=== PATIENT | male | born 1935 | race Caucasian/White ===

== ENCOUNTER 2019-03-08 01:57 | Inpatient (IN) | payer OTHER ==
[~2019-03-08] VITALS: Ht 172.7 cm; Wt 65.7 kg
[2019-03-08] MEDS ORDERED: LISI20 PO (02:39)
[2019-03-08] MEDS ORDERED: Aspir 8181 MG PO (02:39)
[2019-03-08] MEDS ORDERED: AMLODIPINE PO (02:40)
[2019-03-08 03:08] LABS: BASOPHILS ABSOLUTE AUTO 0.02 K/mm3 (0.00-0.23); BASOPHILS PERCENT AUTO 0 % (0-2); EOSINOPHILS PERCENT AUTO 0 % (0-6); Hemoglobin 6.4 g/dL (13.5-17.5); IMMATURE GRAN ABSOLUTE AUTO 0.22 K/mm3 (0.00-0.10); IMMATURE GRAN PERCENT AUTO 1 % (0-1); LYMPHOCYTES ABSOLUTE AUTO 0.48 K/mm3 (0.84-5.20); LYMPHOCYTES PERCENT AUTO 3 % (21-46); MONOCYTES ABSOLUTE AUTO 1.06 K/mm3 (0.16-1.47); MONOCYTES PERCENT AUTO 5 % (4-13); Mean Corpuscular HGB 27.2 pg (26.0-34.0); Mean Corpuscular Volume 85 fL (80-100); Mean Platelet Volume 9.5 fL (9.1-12.4); NEUTROPHILS ABSOLUTE AUTO 17.81 K/mm3 (1.96-9.15); NEUTROPHILS PERCENT AUTO 91 % (41-73); Platelet Count 194 K/mm3 (150-400); RDW Coefficient Variation 14.6 % (11.7-14.2); RDW Standard Deviation 44.9 fL (35.1-46.3); Red Blood Cell Count 2.35 M/mm3 (4.30-5.90); White Blood Cell Count 19.59 K/mm3 (4.00-11.30)
[2019-03-08 03:23] LABS: International Normalized Ratio 2.03; Prothrombin Time Results 20.2 Sec (9.7-11.5)
[2019-03-08 03:28] LABS: Alanine Aminotransfer (ALT/SGP 28 U/L (12-78); Albumin, Blood 1.8 g/dL (3.4-5.0); Albumin/Globulin Ratio 0.5 (0.8-1.8); Alk Phos 119 U/L (50-136); Anion Gap 8 mmol/L (6-16); Aspartate Aminotrans (AST/SGOT 32 U/L (12-37); Blood Urea Nitrogen 14 mg/dL (8-24); Bun/Creatinine Ratio 27.5 (12.0-20.0); CO2, Blood 29 mmol/L (21-32); CPK Creatine Kinase 102 U/L (39-308); Calcium, Blood 8.5 mg/dL (8.5-10.1); Chloride, Blood 96 mmol/L (98-108); Creatinine, Blood 0.51 mg/dL (0.60-1.20); Globulin, Blood 3.8 g/dL (2.2-4.0); Glomerular Filtration Rate >60 (60-); Glucose, Blood 108 mg/dL (70-99); Potassium, Blood 2.9 mmol/L (3.5-5.5); Sodium, Blood 133 mmol/L (136-145); Total Protein, Blood 5.6 g/dL (6.4-8.2); Troponin I 0.108 ng/mL (0.000-0.040)
[2019-03-08 05:51] LABS: Percent Saturation 9.3 % (20.0-50.0)
--- NOTE | 2019-03-08 07:13 | NUR ---
END OF SHIFT SUMMARY ASSUMED CARE OF PT @0640 FROM ED. PT HAS PRBCS INFUSING AND NS. VSS. TELEMETERY ATTTACHED.VITALS OBTAINED, PRBC INFUSION RATE INCREASED 125MLS/HR. BLOOD CONSENT FORM PRESENT AND SIGNED IN ED. PT CHANGED INTO GOWN. PT ALERT AND TALKING WITH STAFF APPROPRIATELY. REPORT GIVEN TO ONCOMING RN.
[2019-03-08 08:54] LABS: Source, Urine Clean Catch
[2019-03-08 09:09] LABS: Bilirubin, Urine Neg (Neg); Blood, Urine 1+ (Neg); Glucose Qualitative, Urine Neg (Neg); Ketones, Urine 2+ (Neg); Leukocyte Esterase, Urine 2+ (Neg); Nitrite, Urine Neg (Neg); Protein, Urine 2+ (Neg); Urobilinogen, Urine 2+ (Normal)
[2019-03-08 09:11] LABS: Appearance, Urine Hazy (Clear); Color, Urine Yellow (P-Yellow)
[2019-03-08 09:14] LABS: Red Blood Cells, Urine 0-2 /hpf (0-2); Squamous Epithelial Cells Rare /hpf (Few)
[2019-03-08 09:15] LABS: Bacteria Many /hpf
[2019-03-08 10:11] LABS: Adenovirus Not Detected (NOT DETECT); Coronavirus 229E Not Detected (NOT DETECT)
[2019-03-08 10:12] LABS: Bordetella pertussis Not Detected (NOT DETECT); Chlamydophila pneumoniae Not Detected (NOT DETECT); Coronavirus HKU1 Not Detected (NOT DETECT); Coronavirus NL63 Not Detected (NOT DETECT); Coronavirus OC43 Not Detected (NOT DETECT); Human Metapneumovirus Not Detected (NOT DETECT); Human Rhinovirus/Enterovirus Not Detected (NOT DETECT); Influenza A Not Detected (NOT DETECT); Influenza A/2009-H1 Not Detected (NOT DETECT); Influenza A/H1 Not Detected (NOT DETECT); Influenza A/H3 Not Detected (NOT DETECT); Influenza B Not Detected (NOT DETECT); Mycoplasma pneumoniae Not Detected (NOT DETECT); Parainfluenza Virus 1 Not Detected (NOT DETECT); Parainfluenza Virus 2 Not Detected (NOT DETECT); Parainfluenza Virus 3 Not Detected (NOT DETECT); Parainfluenza Virus 4 Not Detected (NOT DETECT); Respiratory Syncytial Virus Not Detected (NOT DETECT)
[2019-03-08] MEDS ORDERED: FISH OIL 1,001000 MG PO (10:53)
[2019-03-08] MEDS ORDERED: Hair, Skin & N1 EACH PO (10:53)
[2019-03-08] MEDS ORDERED: VITAMIN D-32000 UNIT PO (10:55)
[2019-03-08 12:06] LABS: Troponin I 0.143 ng/mL (0.000-0.040)
--- NOTE | 2019-03-08 12:28 | NUR ---
MARCELO TURNER OF [facility], NO NEW ORDERS. WILL CONTINUE TO MONITOR.
--- NOTE | 2019-03-08 12:53 | NUR ---
Echocardiogram completed.
[2019-03-08 16:52] LABS: International Normalized Ratio 1.94; Prothrombin Time Results 19.4 Sec (9.7-11.5)
--- NOTE | 2019-03-08 17:46 | NUR ---
SHIFT SUMMARY PT A&Ox2, CALM AND COOPERATIVE [facility] CARE. PT RESTING IN BED DURING SHIFT, UP QITH 1 PERSON ASSIST WITH FWW. PT DENIES PAIN AND NAUSEA. PT REPORTS POOR APPETEITE. PT LS DIMINISHED T/O SHIFT, PT STARTED ON 4L O2 VIA NC, INCREASED TO 5L AFTER ACTIVITY. UA AND RESPIRATORY PANEL COLLECTED AND SENT. PT ATTEMPTED TO GIVE SPUTUM SPECIMEN, LAB CALLED AND SPECIMEN WAS NOT SUFFICENT. PT RECEIVED 2UNITS PRBC, IV ALBUMIN, K RIDER x2 AND IV ANTIBITOICS. PTPE STUDY AND ABD CT COMPLETED THIS AM, PT STARTED ON LOVENOX BID, AND PLANS FOR LUNG BIOPSY IN AM, HELD 03/08/19 0500 DOSE OF LOVENOX, PER DR ARIAS ORDERS. ECHO COMPLETED. PROVIDER CONSULT FOR ONCOLOGY CALLED INTO ANSWERING SERVICE. VSS. NO OTHER ACUTE CHANGES NOTED DURING SHIFT. WILL CONTINUE TO MONITOR. UNTIL REPORT GIVEN TO ONCOMING RN.
[2019-03-08 19:51] LABS: Troponin I 0.12 ng/mL (0.000-0.040)
[2019-03-09 04:04] LABS: Hemoglobin 8.1 g/dL (13.5-17.5); Mean Corpuscular HGB 27.3 pg (26.0-34.0); Mean Corpuscular HGB Conc 32.4 g/dL (31.5-36.5); Mean Corpuscular Volume 84 fL (80-100); Platelet Count 229 K/mm3 (150-400); RDW Coefficient Variation 14.7 % (11.7-14.2); RDW Standard Deviation 45.1 fL (35.1-46.3); Red Blood Cell Count 2.97 M/mm3 (4.30-5.90); White Blood Cell Count 22.58 K/mm3 (4.00-11.30)
[2019-03-09 04:33] LABS: Alanine Aminotransfer (ALT/SGP 24 U/L (12-78); Albumin, Blood 1.8 g/dL (3.4-5.0); Albumin/Globulin Ratio 0.5 (0.8-1.8); Alk Phos 107 U/L (50-136); Anion Gap 8 mmol/L (6-16); Aspartate Aminotrans (AST/SGOT 30 U/L (12-37); Bilirubin, Total 0.9 mg/dL (0.1-1.0); Blood Urea Nitrogen 12 mg/dL (8-24); CO2, Blood 26 mmol/L (21-32); Calcium, Blood 8.2 mg/dL (8.5-10.1); Chloride, Blood 103 mmol/L (98-108); Creatinine, Blood 0.46 mg/dL (0.60-1.20); Globulin, Blood 3.4 g/dL (2.2-4.0); Glomerular Filtration Rate >60 (60-); Glucose, Blood 91 mg/dL (70-99); Potassium, Blood 3.3 mmol/L (3.5-5.5); Sodium, Blood 137 mmol/L (136-145); Total Protein, Blood 5.2 g/dL (6.4-8.2)
--- NOTE | 2019-03-09 05:09 | NUR ---
END OF SHIFT SUMMARY PT AXO. HAS BEEN TITRATED FROM 5LNC TO 10L HIFLOW HUMIDIFIED NC. PT HAS BEEN MAINTAINING AT 91% SINCE TITRATED TO THIS AMOUNT. PT HAS BEEN RESTING IN BED FOR MAJORITY OF SHIFT. OCCASIOANLLY, PT DESATS WHILE SLEEPING INTO LOW 80%, WITH WAKING AND BREATHING THOUGH NOSE, INCREASES BACK TO 91%. PT HAS BEEN VERY COOPERATIVE WITH CARE TODAY. WILL BE MAKING A CALL TO DOCTOR REGARDING SPO3. WILL CONTINUE TO MONITOR UNTIL SHIFT CHANGE.
--- NOTE | 2019-03-09 05:38 | NUR ---
PROVIDER DR TROTTER NOTIFIED REGARDING K 3.3, AND THE FACT THAT THEB PT HAS BEEN TITRATED FROM 4LNC TO 10L HIFLOW SINCE ADMISSION YESTERDAY. ORDERS FOR 40MEQ KCL, AND REPEAT CXR DUE TO PT HAVING PREV BILAT PLEURAL EFFUSIONS.
[2019-03-09 10:05] LABS: International Normalized Ratio 1.81; Prothrombin Time Results 18.2 Sec (9.7-11.5)
--- NOTE | 2019-03-09 12:53 | NUR ---
[facility] Care Case conference - Spoke with who reports pt has declined visits from Palliative Care Staff and Care Management. [facility] Care team informed.
--- NOTE | 2019-03-09 13:17 | NUR ---
DR. SEBASTIAN HERE TO SEE PT. FAMILY AT BEDSIDE.
--- NOTE | 2019-03-09 17:15 | NUR ---
SHIFT SUMMARY PT RESTING IN BED THROUGHOUT THE DAY. VSS. ALERT AND ORIENTED X3, DENIES PAIN THROUGHOUT THE DAY. UP TO CHAIR FOR BREAKFAST THIS AM. VOIDING PER URINAL. LUNG SOUNDS DIMINISHED THROUGHOUT, SINUS TACHYCARDIA RATE 104 ON TELEMETRY. 2+ PITTING EDEMA NOTED TO BILATERAL ANKLES.
[2019-03-10 04:26] LABS: BASOPHILS ABSOLUTE AUTO 0.02 K/mm3 (0.00-0.23); BASOPHILS PERCENT AUTO 0 % (0-2); EOSINOPHILS PERCENT AUTO 0 % (0-6); Hematocrit 26.6 % (37.0-53.0); Hemoglobin 8.6 g/dL (13.5-17.5); IMMATURE GRAN ABSOLUTE AUTO 0.37 K/mm3 (0.00-0.10); IMMATURE GRAN PERCENT AUTO 2 % (0-1); LYMPHOCYTES ABSOLUTE AUTO 1.01 K/mm3 (0.84-5.20); LYMPHOCYTES PERCENT AUTO 4 % (21-46); MONOCYTES ABSOLUTE AUTO 1.21 K/mm3 (0.16-1.47); MONOCYTES PERCENT AUTO 5 % (4-13); Mean Corpuscular HGB 26.6 pg (26.0-34.0); Mean Corpuscular HGB Conc 32.3 g/dL (31.5-36.5); Mean Corpuscular Volume 82 fL (80-100); Mean Platelet Volume 9.4 fL (9.1-12.4); NEUTROPHILS ABSOLUTE AUTO 21.14 K/mm3 (1.96-9.15); NEUTROPHILS PERCENT AUTO 89 % (41-73); Platelet Count 208 K/mm3 (150-400); RDW Standard Deviation 43.8 fL (35.1-46.3); Red Blood Cell Count 3.23 M/mm3 (4.30-5.90); White Blood Cell Count 23.75 K/mm3 (4.00-11.30)
[2019-03-10 04:38] LABS: International Normalized Ratio 1.88; Prothrombin Time Results 18.8 Sec (9.7-11.5)
[2019-03-10 04:46] LABS: Anion Gap 6 mmol/L (6-16); Blood Urea Nitrogen 13 mg/dL (8-24); Bun/Creatinine Ratio 31.2 (12.0-20.0); CO2, Blood 28 mmol/L (21-32); Calcium, Blood 8.9 mg/dL (8.5-10.1); Chloride, Blood 104 mmol/L (98-108); Creatinine, Blood 0.42 mg/dL (0.60-1.20); Glomerular Filtration Rate >60 (60-); Glucose, Blood 107 mg/dL (70-99); Potassium, Blood 3.7 mmol/L (3.5-5.5); Sodium, Blood 138 mmol/L (136-145)
[2019-03-10 07:16] LABS: International Normalized Ratio 1.87; Prothrombin Time Results 18.7 Sec (9.7-11.5)
--- NOTE | 2019-03-10 08:13 | NUR ---
END OF SHIFT SUMMARY NO QACUTE CHANGES THIS SHIFT. VSS. PT HAD LARGE INCONTINENT VOID THIS SHIFT, PT DID NOT ALERT STAFF OF THIS UNTIL ASKED. CONTINENCE CHECKS IN PLACE NOW A RESULT OF THIS. PT AND INR CONTINUE TO BE HIGH, PT GIVEN V8 JUICES. PT HAS BEEN UP AND OUT OF BED. REDNESS NOTED IN SACRAL AREA. PT BEING TURNED. PT DOES USE CALL LIGHT AT TIMES BUT IS NOT ALWAYS APT TO EXPRESS NEEDS UNLESS HE IS ASKED SPECIFICALLY. BED ALARM IN PLACE. REPORT GIVEN TO ONCOMING RN.
--- NOTE | 2019-03-10 19:35 | NUR ---
SHIFT SUMMARY PT RESTING IN BED THROUGHOUT THE DAY, UP TO RECLINER THIS AFTERNOON / EVENING FOR A SNACK. 1 PERSON ASSIST TO RECLINER. ALERT AND ORIENTED X3. DENIES PAIN THROUGHOUT THE DAY. LUNG SOUNDS CLEAR, DIMINISHED BASES. ON HIGH FLOW NC, OXYGEN AT 10L THE MAJORITY OF THE DAY, INCREASED TO 13L AFTER LUNG BIOPSY, PT DESATURATED WITH ACTIVITY. DECREASED OXYGEN BACK TO 10L, SATURATIONS >90% THIS EVENING, 95-96% WHEN SLEEPING. BANDAID TO LEFT BACK CDI. NSR RATE 90s-100s PER TELEMETRY. 2+ PITTING EDEMA TO BILATERAL ANKLES. REPORT TO PATTERN TECHNICIAN RN.
--- NOTE | 2019-03-11 06:28 | NUR ---
SUMMARY: ADMIT DAY 4 ANEMIA AND PNEUMONIA AFTER GLF ON HOSPITALIST, DR. TAM AND DR. SEBASTIAN SERVICE. POD 1 LUNG BIOPSY AWAITING RESULTS. VSS, AFEBRILE, SPO2 >90% ON 10L HUMIDIFIED HIFLOW O2. PT MOVES WELL IN BED. DENIES PAIN, SOB OR DIZZINESS. CONTINUE PT/OT AND AWAIT STOOL AND SPUTUM SAMPLE COLLECTION.
--- NOTE | 2019-03-11 12:31 | NUR ---
hr moved up, bp slightly lower, denies any symptoms, states he is feeling fine, informed dr who said to monitor closely and to call again if high heart rate continues, also suggested holding any bp medication but none was due, will continue to monitor and treat, resting quietly
[2019-03-11 15:29] LABS: BASOPHILS ABSOLUTE AUTO 0.01 K/mm3 (0.00-0.23); BASOPHILS PERCENT AUTO 0 % (0-2); EOSINOPHILS PERCENT AUTO 0 % (0-6); Hematocrit 25.1 % (37.0-53.0); Hemoglobin 7.8 g/dL (13.5-17.5); IMMATURE GRAN PERCENT AUTO 1 % (0-1); LYMPHOCYTES ABSOLUTE AUTO 0.92 K/mm3 (0.84-5.20); LYMPHOCYTES PERCENT AUTO 5 % (21-46); MONOCYTES ABSOLUTE AUTO 1.02 K/mm3 (0.16-1.47); MONOCYTES PERCENT AUTO 6 % (4-13); Mean Corpuscular HGB 26.8 pg (26.0-34.0); Mean Corpuscular HGB Conc 31.1 g/dL (31.5-36.5); Mean Platelet Volume 9.9 fL (9.1-12.4); NEUTROPHILS ABSOLUTE AUTO 15.68 K/mm3 (1.96-9.15); NEUTROPHILS PERCENT AUTO 88 % (41-73); Platelet Count 189 K/mm3 (150-400); RDW Coefficient Variation 15.6 % (11.7-14.2); RDW Standard Deviation 48.9 fL (35.1-46.3); Red Blood Cell Count 2.91 M/mm3 (4.30-5.90); White Blood Cell Count 17.83 K/mm3 (4.00-11.30)
[2019-03-11 15:38] LABS: Mean Corpuscular Volume 86 fL (80-100)
--- NOTE | 2019-03-11 19:33 | NUR ---
a+o, converted back to sr at about 1800 and rate lowered, bolus had been given saline locked, 10L via hp nc, family in to visit most of the day spoke to surgann who stated he had not seen the biopsy, hard to understand pt due to lack of lung capacity
--- NOTE | 2019-03-11 20:20 | NUR ---
ASSUMED CARE: REPORT RECEIVED FROM AV Quiroz RN. ASSUMED CARE OF THIS PT AT APPROX 1900. ON ASSESSMENT, THE PT IS A&O. HE IS SOFT SPOKEN & BECOMES DYSPNEIC EASILY WHILE TALKING. LS ARE COARSE T/O, PT ON 10L HI-FLOW NC W/ O2 SATS > 90% ON AVG. PT DESATS TO 84% QUICKLY WHEN EXERTING SELF OR CONVERSING. SATS RECOVER SLOWLY W/ CONTROLLED BREATHING & VERBAL DIRECTION TO BREATHE THROUGH NOSE BY STAFF. MONITOR SHOWS SR W/ HR 90s. PT WAS IN AFIB DURING DAY SHIFT BUT CONVERTED TO SR AT APPROX 1818, STRIP PLACED IN CHART. BP HAS IMPROVED W/ CONVERSION ALSO. PT HAS NO GI COMPLAINTS. HE IS INCONTINENT OF URINE & HAS ATTENDS IN PLACE. BED ALARM ON PT IS IMPULSIVE AT TIMES. WILL CONTINUE TO MONITOR & UPDATE NEEDED.
--- NOTE | 2019-03-12 01:05 | NUR ---
RECEIVED REPORT FROM JOSE LEIGH AND ASSUMED PT CARE. PT IS RESTING IN BED WITH EYES CLOSED, WILL CONTINUE TO MONITOR.
[2019-03-12 03:44] LABS: Hematocrit 25.4 % (37.0-53.0); Hemoglobin 7.9 g/dL (13.5-17.5); Mean Corpuscular HGB 26.5 pg (26.0-34.0); Mean Corpuscular HGB Conc 31.1 g/dL (31.5-36.5); Mean Corpuscular Volume 85 fL (80-100); Mean Platelet Volume 9.5 fL (9.1-12.4); Platelet Count 199 K/mm3 (150-400); RDW Coefficient Variation 15.5 % (11.7-14.2); RDW Standard Deviation 47.9 fL (35.1-46.3); Red Blood Cell Count 2.98 M/mm3 (4.30-5.90); White Blood Cell Count 16.71 K/mm3 (4.00-11.30)
[2019-03-12 04:01] LABS: Alanine Aminotransfer (ALT/SGP 21 U/L (12-78); Albumin, Blood 1.5 g/dL (3.4-5.0); Albumin/Globulin Ratio 0.4 (0.8-1.8); Alk Phos 100 U/L (50-136); Anion Gap 5 mmol/L (6-16); Aspartate Aminotrans (AST/SGOT 27 U/L (12-37); Blood Urea Nitrogen 19 mg/dL (8-24); Bun/Creatinine Ratio 39.7 (12.0-20.0); CO2, Blood 32 mmol/L (21-32); Calcium, Blood 8.6 mg/dL (8.5-10.1); Chloride, Blood 107 mmol/L (98-108); Creatinine, Blood 0.48 mg/dL (0.60-1.20); Globulin, Blood 3.6 g/dL (2.2-4.0); Glomerular Filtration Rate >60 (60-); Glucose, Blood 120 mg/dL (70-99); Potassium, Blood 3.5 mmol/L (3.5-5.5); Sodium, Blood 144 mmol/L (136-145); Total Protein, Blood 5.1 g/dL (6.4-8.2)
--- NOTE | 2019-03-12 06:49 | NUR ---
SHIFT SUMMARY PT HAS RESTED WELL THROUGH SHIFT AND DENIES COMPLAINTS. INCREASING OXYGEN REQUIREMENTS TO MAINTAIN SATS >90%, CURRENTLY ON 15 L HIGH FLOW WITH HUMIDIFICATION. DISCUSSED WITH RT DANIELA, PT HAS UNCHANGED LUNG SOUNDS. WILL DISCUSS WITH DAY SHIFT RN TO COMMUNICATE TO MD DURING ROUNDS. NO OTHER ACUTE CHANGES, PT CONTINUES TO STATE "I FEEL FINE". WILL REPORT OFF TO DAY SHIFT RN.
--- NOTE | 2019-03-12 17:31 | NUR ---
Clinical Visit: Pt placed back on palliative list after discussed consult with department. Previously, pt has declined to meet with palliative. Discussed with Libby social media assistant. She states that the family has accepted meeting with palliative care tomorrow and that they are discussing DNR/DNI status tonight. Pt is currently full code. Discussed with Perla PCU and bedside nurse, Bari. Introductory meeting with family and pt. Pt reports that he is not having any pain or aches. He does report some pain. Family and pt do not wish to discuss code status or hospice tonight and agree to meet tomorrow in the pt's room to identify goals. Notes and chart reviewed. Will remain available.
--- NOTE | 2019-03-12 19:29 | NUR ---
soft spoken, discussed palative care with family, call light in reach, saline locked, able to make needs known, sbar report provided to night nurse
[2019-03-13 04:12] LABS: BASOPHILS ABSOLUTE AUTO 0.02 K/mm3 (0.00-0.23); BASOPHILS PERCENT AUTO 0 % (0-2); EOSINOPHILS PERCENT AUTO 0 % (0-6); Hematocrit 27.4 % (37.0-53.0); Hemoglobin 8.1 g/dL (13.5-17.5); IMMATURE GRAN ABSOLUTE AUTO 0.33 K/mm3 (0.00-0.10); IMMATURE GRAN PERCENT AUTO 2 % (0-1); LYMPHOCYTES ABSOLUTE AUTO 1.11 K/mm3 (0.84-5.20); LYMPHOCYTES PERCENT AUTO 7 % (21-46); MONOCYTES ABSOLUTE AUTO 0.91 K/mm3 (0.16-1.47); MONOCYTES PERCENT AUTO 6 % (4-13); Mean Corpuscular HGB 26.2 pg (26.0-34.0); Mean Corpuscular HGB Conc 29.6 g/dL (31.5-36.5); Mean Platelet Volume 9.8 fL (9.1-12.4); NEUTROPHILS ABSOLUTE AUTO 13.35 K/mm3 (1.96-9.15); NEUTROPHILS PERCENT AUTO 85 % (41-73); Platelet Count 167 K/mm3 (150-400); RDW Coefficient Variation 15.8 % (11.7-14.2); RDW Standard Deviation 51.3 fL (35.1-46.3); Red Blood Cell Count 3.09 M/mm3 (4.30-5.90); White Blood Cell Count 15.72 K/mm3 (4.00-11.30)
[2019-03-13 04:14] LABS: Mean Corpuscular Volume 89 fL (80-100)
--- NOTE | 2019-03-13 05:07 | NUR ---
SHIFT SUMMARY ASSUMED CARE OF PT AT 1900, PT AWAKE, A&O LYING IN BED. MEDICATED AND TREATED PT PER MD ORDER AND UNIT PROTOCOL. DENIES PAIN. PT MAINTAINED SINUS TACH IN 100'S, ALL OTHER VSS T/O. DC'D IV IN LAC: FOUND TO BE LEAKING. IV'S TO RAC & RFA PATENT AND FLUSHING. PT USED CALL LIGHT TO REPORT INCONTINENT VOID AROUND 11PM, AT TIME OF THIS NOTE PT DENIES NEED TO VOID AND DENIES WETNESS. WILL CONTINUE TO MONITOR UNTIL PASSING CARE AND REPORT TO ONCOMING SHIFT. BED LOCKED & LOW, CALL LIGHT W/IN REACH.
--- NOTE | 2019-03-13 11:02 | NUR ---
PCU DAYSHIFT ASSUMED CARE OF PT APPROX. 0700. PT SLEEPING AT START OF SHIFT BUT PT REMAIN ARROUSABLE. ONCE PT AWAKE PT A&OX4. VITAL SIGNS STABLE. ASSESSMENT COMPLETED. PT SOB AND HAS DIFFICULTY HOLDING A CONVERSATION WITH THIS BUT ABLE TO ANSWER QUESTIONS APPROPRIATELY. PT REPORTS READY FOR BREAKFAST AND IS HUNGRY. FAMILY AT BEDSIDE ANSWERED QUESTIONS NEEDED. PALLIATIVE RN, REPORTS THAT SHE SPOKE WITH FAMILY AND THE PAT AND THEMSELVED WISH FOR PT TO LEAVE HERE WITH HOSPICE TO A CARE [facility]. SHE ALSO REPROTS THEY WISH FOR PT TO BE A DNR/DNI. WILL NOTIFY PHYSICIAN OF THIS.
--- NOTE | 2019-03-13 19:37 | NUR ---
SHIFT SUMMARY PT PLEASANT, COOPERATIVE AND USES CALL LIGHT APROPRIATELY. PT REMAINS A&OX4. VITAL SIGNS REMAIN STABLE. ASSESSMENT FINDINGS REMAIN UNCHANGED. ALTHOUGH SWELLING IN PT LEFT ARM DESCREASED. PT REMAINS ON 12L OXYGEN VIA HIGH FLOW CANULA. PT SPENT MOST OF SHIFT IN BED AND SLEPT ABOUT HALF OF THE SHIFT. PT ABLE TO REPORT THAT HE DISCUSSED HIS CHANGE IN CODE STATUS AND PLAN FOR DISCHARGE WITH PHYSICIAN. PT CONTINUES TO BE INCONTINENT. PT HAD LITTLE APPETITE TODAY. NO S/SX OF ACUTE DISTRESS. BED IN LOW POSITION, CALL LIGHT IN REACH AND PT DENIES ANY NEEDS WILL CONTINUE TO MONITOR UNTIL HANDOFF TO NIGHTSHIFT RN.
--- NOTE | 2019-03-14 06:32 | NUR ---
SHIFT SUMMARY ASSUMED CARE OF PT AT 1900, PT A&O LYING IN BED. GAVE ORAL CARE, RADHA-CARE, SKIN CARE, FOAM BOOT PROTECTORS FOR HEELS, NEW DRESSING FOR WOUND TO COCCYX, REPOSITIONING, AND BACK RUB. MEDICATED PER MD ORDER AND UNIT PROTOCOL. O2 SATS MAINTAINED ABOVE 92% W CONTINUOUS H-MARLENI NC @ 12L. PT WAS TIRED FROM AN ACTIVE DAY AND SLEPT MOST OF THE SHIFT, BUT ASKED TO TRANSFER TO CHAIR AT AROUND 0430. PT STAYED IN CHAIR TIL AROUND 0620 WHEN HE USED CALL LIGHT APPROPRIATELY TO TRANSFER BACK TO BED. PT WAS INCONTINENT OF URINE X 1 THIS SHIFT. MENTATION APPEARED TO IMPROVE WITH PHYSICAL ACTIVITY. WILL CONTINUE TO MONITOR AND WILL PASS CARE AND REPORT TO ONCOMING SHIFT. BED LOCKED AND LOW, CALL LIGHT W/IN REACH.
--- NOTE | 2019-03-14 08:47 | NUR ---
PCU DAYSHIFT ASSUMED CARE OF PT APPROX. 0700. PT A&OX4. ASSESSMENT COMPLETED. VITAL SIGNS STABLE. PT REPORTS BEING READY TO LEAVE HOSPITAL AND GO TO CARE FACILITY. PT LUNG SOUNDS ARE COARSE T/O. PT REMAINS ON 12L OXYGEN VIA HIGH FLOW CANULA WITH SATS IN 90'S. RECIEVED ORDER FOR DISCHARGE TO FACILITY WITH HOSPICE. WILL COMPLETE THIS PROCESS. PT RIDE ARRANGED FOR 0930. WILL GET PT READY, REMOVE IV'S, AND GATHER BELONGING TO GO WITH PT. WILL CONTINUE TO MONITOR UNTIL PT IS ESCORTED TO TRANSPORTATION VIA WHEELCHAIR BY PEER STAFF MEMBER.
[2019-03-14] MEDS ORDERED: ALBU2.5V5 INH (08:48)
[2019-03-14] MEDS ORDERED: ONDA4ODT SL (08:50)
--- NOTE | 2019-03-14 10:15 | NUR ---
DISCHARGE PT RIDE ARRIVED TO GET PT. PT WS TRANSFER FROM BED TO [facility]. TRASPORT STAFF ESCORTED PT FROM UNIT. NO S/SX OF ACUTE DISTRESS UPON LEAVING UNIT
== END 2019-03-14 10:24 | disposition home or self-care (01) | DRG 180 ==
LOC: ER 01:57 → PCU 04:30
PROVIDERS: Emergency Medicine; Internal Medicine; Internal Medicine Critical Care Medicine; ADMIT Internal Medicine
PROC: 30233N1 Transfusion of Nonautologous Red Blood Cells into Peripheral Vein, Percutaneous Approach (ICD-10-PCS; 2019-03-08)
PROC: 0BBG3ZX Excision of Left Upper Lung Lobe, Percutaneous Approach, Diagnostic (ICD-10-PCS; principal; 2019-03-10)
DX: C34.90 Malignant neoplasm of unspecified part of unspecified bronchus or lung (principal); I26.99 Other pulmonary embolism without acute cor pulmonale; J96.01 Acute respiratory failure with hypoxia; J18.9 Pneumonia, unspecified organism; I21.A1 Myocardial infarction type 2; J44.0 Chronic obstructive pulmonary disease with (acute) lower respiratory infection; C78.7 Secondary malignant neoplasm of liver and intrahepatic bile duct; C79.51 Secondary malignant neoplasm of bone; E87.1 Hypo-osmolality and hyponatremia; R79.89 Other specified abnormal findings of blood chemistry; I10 Essential (primary) hypertension; E87.6 Hypokalemia; R63.4 Abnormal weight loss; Z51.5 Encounter for palliative care; Z79.82 Long term (current) use of aspirin; D50.0 Iron deficiency anemia secondary to blood loss (chronic); D50.9 Iron deficiency anemia, unspecified; Z87.891 Personal history of nicotine dependence
CPT/HCPCS: 0099U; 32405; 36415; 36430; 70470; 71046; 71260; 74177; 77012; 80048; 80053; 81001; 82550; 82728; 83540; 83550; 83605; 83735; 83880; 84145; 84484; 85025; 85027; 85610; 85730; 86850; 86900; 86901; 86923; 87040; 87086; 88305; 88341; 88342; 93005; 93010; 93306; 94640; 94760; 94762; 96365; 96366; 96368; 99285-25; J0456; J0696; J1650; J1956; J3430; J3475; J3480; J7030; J7050; J7120; P9016; P9046; P9059; Q9967